=== PATIENT | female | born 1950 | race Caucasian/White ===

== ENCOUNTER 2016-10-14 10:44 | Emergency (ER) | payer OTHER ==
[~2016-10-14] VITALS: Ht 175.3 cm; Wt 66.5 kg
[2016-10-14 10:59] VITALS: BP 146/80; PULSE 88; RESP 16; TEMP 98.5; O2SAT 100
[2016-10-14] MEDS ORDERED: ENAL20TA PO (11:12)
[2016-10-14] MEDS ORDERED: METO50TA11 PO (11:12)
[2016-10-14] MEDS ORDERED: HYDR12.56 PO (11:12)
--- NOTE | 2016-10-14 11:24 | PD ---
HPI Chief Complaint: Cold / Flu Symptoms Time Seen by Provider: 11:21 Travel History International Travel<30 days: No Contact w/Intl Traveler<30days: No Traveled to known affect area: No History of Present Illness HPI 66-year-old long-term smoker presents the emergency department with 2 week history of increasing cough, wheeze, shortness of breath. Cough is productive of yellow green sputum, but denies blood. Patient states started with a head cold with fever for 3 days and hasn't gotten better since. She has decreased appetite but no nausea, vomiting, or diarrhea. Patient has no history of needing nebulizers or inhalers in the past. Patient has muscle aches from coughing. She has not been able to sleep flat for the past week secondary to shortness of breath and cough. Patient has no known drug allergies. PFSH Past Medical History Hypertension: Yes Tetanus Vaccination: > 5 Years Influenza Vaccination: No ?: Not Menopausal: Yes Past Surgical History Surgical History: No Previous Surgery Social History Alcohol Use: No Tobacco Use: Yes (1.5 PPD) Substance Use: No Allergies-Medications (Allergen,Severity, Reaction): Coded Allergies: No Known Allergies (Unverified , 10/14/16) Reported Meds & Prescriptions Reported Meds & Active Scripts Active Reported Enalapril (Enalapril Maleate) 20 Mg Tab 40 Mg PO DAILY Hydrochlorothiazide 12.5 Mg Tab 12.5 Mg PO DAILY Metoprolol Succinate ER 24 HR (Metoprolol Succinate) 50 Mg Tab 50 Mg PO DAILY Review of Systems Except as stated in HPI: all other systems reviewed are Neg General / Constitutional: Positive: Chills, No: Fever Eyes: No: Visual changes HENT: Positive: Rhinitis, Rhinorrhea, Congestion, No: Headaches Cardiovascular: No: Chest Pain or Discomfort Respiratory: Positive: Cough, Shortness of Breath, Wheezing, Orthopnea, No: Sneezing, Hemoptysis, Stridor, Night Sweats, Pleuritic Pain, Other Gastrointestinal: Positive: Loss of Appetite, No: Nausea, Vomiting, Diarrhea, Abdominal Pain Genitourinary: No: Dysuria Musculoskeletal: No: Pain Skin: No Rash Neurologic: No: Weakness Psychiatric: No: Depression Endocrine: No: Polydipsia Hematologic/Lymphatic: No: Easy Bruising Physical Exam Narrative GENERAL: Patient appears ill but not septic. SKIN: Warm. Poor pallor. Mild diaphoresis. HEAD: Atraumatic. Normocephalic. EYES: Pupils equal and round. No scleral icterus. No injection or drainage. ENT: No nasal bleeding or discharge. Mucous membranes pink and moist. TMs are dull bilaterally no injection. Posterior pharynx is unremarkable. Airway is patent. NECK: Trachea midline. No JVD. Supple nontender. CARDIOVASCULAR: Regular rate and rhythm. RESPIRATORY: No accessory muscle use. Diffuse wheezes, rales, and rhonchi throughout to auscultation. Breath sounds equal bilaterally. GASTROINTESTINAL: Abdomen soft, non-tender, nondistended. Hepatic and splenic margins not palpable. MUSCULOSKELETAL: Extremities without clubbing, cyanosis, or edema. No obvious deformities. NEUROLOGICAL: Awake and alert. No obvious cranial nerve deficits. Motor grossly within normal limits. Five out of 5 muscle strength in the arms and legs. Normal speech. PSYCHIATRIC: Appropriate mood and affect; insight and judgment normal. Data Data Last Documented VS Vital Signs Date Time Temp Pulse Resp B/P Pulse Ox O2 Delivery O2 Flow Rate FiO2 10/14/16 13:00 108 20 138/64 93 Nasal Cannula 3 10/14/16 10:59 98.5 Orders Complete Blood Count With Diff (10/14/16 11:24) Comprehensive Metabolic Panel (10/14/16 11:24) Iv Access Insert/Monitor (10/14/16 11:24) Electrocardiogram (10/14/16 11:24) Ecg Monitoring (10/14/16 11:24) Oximetry (10/14/16 11:24) Oxygen Administration (10/14/16 11:24) Chest, Pa & Lat (10/14/16 11:24) Sodium Chloride 0.9% Flush (Ns Flush) (10/14/16 11:30) Methylprednisolone So Succ Inj (Solumedr (10/14/16 11:30) Albuterol-Ipratropium Neb (Duoneb Neb) (10/14/16 11:30) Ceftriaxone Inj (Rocephin Inj) (10/14/16 11:30) Azithromycin (Zithromax) (10/14/16 11:30) Lactic Acid (10/14/16 11:24) Potassium Chloride (Kcl) (10/14/16 12:15) Labs Laboratory Tests Test 5/1/17 11:35 White Blood Count 8.9 TH/MM3 Red Blood Count 4.58 MIL/MM3 Hemoglobin 15.6 GM/DL Hematocrit 46.9 % Mean Corpuscular Volume 102.3 FL Mean Corpuscular Hemoglobin 33.9 PG Mean Corpuscular Hemoglobin 33.2 % Concent Red Cell Distribution Width 11.9 % Platelet Count 235 TH/MM3 Mean Platelet Volume 6.6 FL Neutrophils (%) (Auto) 74.7 % Lymphocytes (%) (Auto) 8.2 % Monocytes (%) (Auto) 16.8 % Eosinophils (%) (Auto) 0.0 % Basophils (%) (Auto) 0.3 % Neutrophils # (Auto) 6.7 TH/MM3 Lymphocytes # (Auto) 0.7 TH/MM3 Monocytes # (Auto) 1.5 TH/MM3 Eosinophils # (Auto) 0.0 TH/MM3 Basophils # (Auto) 0.0 TH/MM3 CBC Comment DIFF FINAL Differential Comment Sodium Level 139 MEQ/L Potassium Level 3.2 MEQ/L Chloride Level 100 MEQ/L Carbon Dioxide Level 29.5 MEQ/L Anion Gap 10 MEQ/L Blood Urea Nitrogen 12 MG/DL Creatinine 0.82 MG/DL Estimat Glomerular Filtration 70 ML/MIN Rate Random Glucose 108 MG/DL Lactic Acid Level 1.1 mmol/L Calcium Level 9.3 MG/DL Total Bilirubin 0.8 MG/DL Aspartate Amino Transf 20 U/L (AST/SGOT) Alanine Aminotransferase 16 U/L (ALT/SGPT) Alkaline Phosphatase 105 U/L Total Protein 7.1 GM/DL Albumin 2.8 GM/DL [facility] Medical Decision Making Medical Screen Exam Complete: Yes Emergency Medical Condition: Yes Differential Diagnosis Chronic bronchitis with exacerbation. COPD. Pneumonia. Wheezy bronchitis. Narrative Course Patient is medically stable at time of exam. EKG is ordered as well as chest x-ray. Labs ordered including CBC, CMP, lactic acid. Chest x-ray PA and lateral was ordered. IV access is obtained patient is given 125 mg Solu-Medrol IV as well as a DuoNeb every 15 minutes 3. Patient is given Rocephin 1 g IV as well as 500 mg azithromycin by mouth. CBC is unremarkable. CMP unremarkable except potassium 3.2. Lactic acid 1.1. Patient is given 20 mEq potassium by mouth 1. Chest x-ray shows possible infiltrate bilaterally versus chronic disease. Per radiologist. Patient will be continued on azithromycin 500 mg daily for the next 5 days. Patient is continued on prednisone dosepak as prescribed. Patient is to use albuterol metered-dose inhaler 2 puffs every 4-6 hours when necessary cough wheeze. Patient is to quit smoking immediately to ensure improvement. Patient is given Tussionex cough medicine 1 teaspoon every 12 hours when necessary cough 60 mL. Patient follow-up with her primary care physician in the next week to ensure improvement or return to emergency Department with worsening symptoms as needed. Diagnosis Primary Impression: COPD with acute exacerbation Additional Impressions: Acute wheezy bronchitis Pneumonia Patient Instructions: COPD (Chronic Obstructive Pulmonary Disease) (ED), General Instructions, How to Stop Smoking (ED), How to Use a Metered-Dose Inhaler (ED), Prednisone (By mouth) Additional Instructions: IV access is obtained patient is given 125 mg Solu-Medrol IV as well as a DuoNeb every 15 minutes 3. Patient is given Rocephin 1 g IV as well as 500 mg azithromycin by mouth. CBC is unremarkable. CMP unremarkable except potassium 3.2. Lactic acid 1.1. Patient is given 20 mEq potassium by mouth 1. Chest x-ray shows possible infiltrate bilaterally versus chronic disease. Per radiologist. Patient will be continued on azithromycin 500 mg daily for the next 5 days. Patient is continued on prednisone dosepak as prescribed. Patient is to use albuterol metered-dose inhaler 2 puffs every 4-6 hours when necessary cough wheeze. Patient is to quit smoking immediately to ensure improvement. Patient is given Tussionex cough medicine 1 teaspoon every 12 hours when necessary cough 60 mL. Patient follow-up with her primary care physician in the next week to ensure improvement or return to emergency Department with worsening symptoms as needed. Med/Other Pt SpecificInfo: Prescription(s) given Disposition: 01 DISCHARGE HOME Condition: Stable Amrik Burrows October 14, 2016 11:24
[2016-10-14 11:30] VITALS: O2SAT 95
[2016-10-14] MEDS ORDERED: SODIUM CHLORIDE 0.9% FLUSH 10 ML FLUSH IVF PRN (11:30)
[2016-10-14] MEDS ORDERED: AZITHROMYCIN 250 MG TAB PO ONE (11:30)
[2016-10-14] MEDS ORDERED: methylPREDNISolone SOD SUCC 125 MG/2 ML VIAL IVP ONE (11:30)
[2016-10-14] MEDS ORDERED: cefTRIAXone INJ 1,000 MG in SODIUM CHLORIDE 0.9% INJ 100 ML IV ONE (11:30)
[2016-10-14] MEDS: RESP: ALBUTEROL 2.5 MG/IPRATROPIUM 0.5 MG NEB (SCH) INH ×2 (11:33→11:35)
[2016-10-14 11:44] LABS: AUTOMATED NEUTROPHIL # 6.7 TH/MM3 (1.8-7.7); BASOPHIL % 0.3 % (0.0-2.0); HEMATOCRIT 46.9 % (35.0-46.0); HEMO FLAGS DIFF FINAL; LYMPH % 8.2 % (9.0-44.0); LYMPHOCYTE # 0.7 TH/MM3 (1.0-4.8); MEAN CELL VOLUME 102.3 FL (80.0-100.0); MEAN CORPUSCULAR HEMOGLOBIN 33.9 PG (27.0-34.0); MEAN CORPUSCULAR HGB CONC 33.2 % (32.0-36.0); MONO % 16.8 % (0.0-8.0); NEUT % 74.7 % (16.0-70.0); PLATELET COUNT 235 TH/MM3 (150-450); RED BLOOD COUNT 4.58 MIL/MM3 (4.00-5.30); RED CELL DISTRIBUTION WIDTH 11.9 % (11.6-17.2); WHITE BLOOD COUNT 8.9 TH/MM3 (4.0-11.0)
[2016-10-14 11:53] VITALS: O2SAT 92
[2016-10-14 11:55] LABS: CHLORIDE 100 MEQ/L (98-107); POTASSIUM 3.2 MEQ/L (3.5-5.1); SODIUM (NA) 139 MEQ/L (136-145)
[2016-10-14 11:59] LABS: ANION GAP 10 MEQ/L (5-15); BICARBONATE 29.5 MEQ/L (21.0-32.0); BLOOD UREA NITROGEN 12 MG/DL (7-18)
[2016-10-14 12:02] LABS: ALT (GPT) 16 U/L (10-53); AST (GOT) 20 U/L (15-37); GLOMERULAR FILTRATION RATE 70 ML/MIN (>89)
[2016-10-14 12:03] LABS: TOTAL BILIRUBIN ADULT 0.8 MG/DL (0.2-1.0)
[2016-10-14 12:05] LABS: ALKALINE PHOSPHATASE 105 U/L (45-117)
[2016-10-14] MEDS ORDERED: POTASSIUM CHLORIDE 20 MEQ CONTROLLED RELEASE TAB PO ONE (12:15)
--- NOTE | 2016-10-14 12:39 | RADHPO ---
EXAM DATE/TIME: 10/14/2016 11:31 [facility] COMPARISON: No previous studies available for comparison. INDICATIONS : Cough, short of breath. MEDICAL HISTORY : smoker SURGICAL HISTORY : None. ENCOUNTER: Initial ACUITY: 2 weeks PAIN SCORE: 0/10 LOCATION: Bilateral chest FINDINGS: PA and lateral views of the chest demonstrate minimal interstitial densities. No consolidation or ple ural effusion. The cardiomediastinal contours are unremarkable. Osseous structures are intact. CONCLUSION: Minimal interstitial densities could be active interstitial infiltrate versus chronic disease. Hunter Nieves MD on October 14, 2016 at 12:36 Board Certified Radiologist. This report was verified electronically.
[2016-10-14 13:00] VITALS: BP 138/64; PULSE 108; RESP 20; O2SAT 93
[2016-10-14] MEDS ORDERED: TUSSSUS2 PO (13:11)
[2016-10-14] MEDS ORDERED: PRED10PA2 PO (13:11)
[2016-10-14] MEDS ORDERED: VENTAER INH (13:11)
[2016-10-14] MEDS ORDERED: AZIT500T2 PO (13:11)
--- NOTE | 2016-10-14 16:32 | EKG ---
Date Performed: 10/14/2016 Time Performed: 11:27:52 PTAGE: 66 years EKG: Sinus rhythm Normal ECG NO PREVIOUS TRACING DOCTOR: Tyler Ross Interpretating Date/Time 10/14/2016 16:30:20
== END 2016-10-14 13:25 | disposition home or self-care (01) ==
LOC: PHEFT 10:44
DX: J44.1 Chronic obstructive pulmonary disease with (acute) exacerbation (principal); J18.9 Pneumonia, unspecified organism; I10 Essential (primary) hypertension; F17.210 Nicotine dependence, cigarettes, uncomplicated
CPT/HCPCS: 71020; 80053; 83605; 85025; 93005; 94640; 94664; 96365; 96375; 99284; J0696; J2930

== ENCOUNTER 2017-05-24 03:59 | Inpatient (IN) | payer OTHER, MEDICARE ==
[~2017-05-24] VITALS: Ht 170.2 cm; Wt 65.7 kg
[2017-05-24] VITALS (8 sets, daily range): BP systolic 135–168; BP diastolic 62–76; PULSE 66–77; RESP 16–20; TEMP 96.8–99.1; O2SAT 94–98
[~2017-05-24 03:59] MED LIST: AZIT500T2 PO; ENAL20TA PO; HYDR12.56 PO; METO1TAB9 PO; PRED10PA2 PO; TUSSSUS2 PO; VENTAER INH
[2017-05-24] MEDS ORDERED: ENAL20TA PO (04:14)
[2017-05-24] MEDS ORDERED: HYDR12.56 PO (04:14)
[2017-05-24] MEDS ORDERED: SODIUM CHLORIDE 0.9% FLUSH 10 ML FLUSH IV FLUSH PRN ×2 (04:30→06:30)
[2017-05-24] MEDS ORDERED: ONDANSETRON HCL 4 MG/2 ML VIAL IVP ONE (04:30)
[2017-05-24 04:38] LABS: AUTOMATED NEUTROPHIL # 8.6 TH/MM3 (1.8-7.7); BASOPHIL # 0.2 TH/MM3 (0-0.2); BASOPHIL % 1.7 % (0.0-2.0); EOSINOPHIL % 0.3 % (0.0-4.0); HEMATOCRIT 45.3 % (35.0-46.0); HEMO FLAGS DIFF FINAL; LYMPH % 5.4 % (9.0-44.0); LYMPHOCYTE # 0.6 TH/MM3 (1.0-4.8); MEAN CELL VOLUME 91.3 FL (80.0-100.0); MEAN CORPUSCULAR HEMOGLOBIN 29.8 PG (27.0-34.0); MEAN CORPUSCULAR HGB CONC 32.7 % (32.0-36.0); MONO % 9.3 % (0.0-8.0); NEUT % 83.3 % (16.0-70.0); PLATELET COUNT 161 TH/MM3 (150-450); RED BLOOD COUNT 4.96 MIL/MM3 (4.00-5.30); RED CELL DISTRIBUTION WIDTH 12.7 % (11.6-17.2); WHITE BLOOD COUNT 10.4 TH/MM3 (4.0-11.0)
[2017-05-24 04:44] LABS: CHLORIDE 103 MEQ/L (98-107); POTASSIUM 3.5 MEQ/L (3.5-5.1); SODIUM (NA) 138 MEQ/L (136-145)
--- NOTE | 2017-05-24 04:44 | PD ---
HPI Chief Complaint: GI Complaint Time Seen by Provider: 04:25 Travel History International Travel<30 days: No Contact w/Intl Traveler<30days: No Traveled to known affect area: No History of Present Illness HPI 66-year-old female presents to the emergency department by private transportation for evaluation of right upper quadrant abdominal pain 2 days. Patient states she has history of gallstones. Patient has had ultrasound the past. Patient states she has frequent episodes of gallbladder attacks with a typically resolve with time and with using a heating pad. Patient states this is been persistent. Patient has had vomiting. Patient denies bilious emesis coffee-ground emesis or bloody emesis. Patient also denies any bloody or tarry stools. Patient has no prior history of abdominal disease no diverticulosis no colitis diverticulitis. Patient's had no colonoscopy or upper endoscopy. Patient denies history of gastritis peptic ulcer disease or pancreatitis. Patient has had no chest pain or shortness of breath. Patient denies fever. Patient is unable to identify exacerbating or alleviating factors. Patient denies alcohol use. Patient does have history of hypertension and diet- controlled hypercholesterolemia. PFSH Past Medical History Narrative Medical COPD dyslipidemia hypertension gallstones High Cholesterol: Yes Gastrointestinal Disorders: Yes (GALLSTONES) Hypertension: Yes Pneumonia: Yes Tetanus Vaccination: > 5 Years Influenza Vaccination: No ?: Not Menopausal: Yes : 1 Para: 1 Tubal Ligation: Yes Past Surgical History Oral Surgery: Yes (TEETH EXTRACTION) Social History Alcohol Use: No Tobacco Use: Yes (1.5 PPD) Substance Use: No Allergies-Medications (Allergen,Severity, Reaction): Coded Allergies: No Known Allergies (Unverified Allergy, Unknown, 05/24/17) Reported Meds & Prescriptions Reported Meds & Active Scripts Active Reported Hydrochlorothiazide 12.5 Mg Tab 12.5 Mg PO DAILY Enalapril (Enalapril Maleate) 20 Mg Tab 20 Mg PO DAILY Metoprolol Succinate ER 24 HR (Metoprolol Succinate) 50 Mg Tab 50 Mg PO DAILY Review of Systems Except as stated in HPI: all other systems reviewed are Neg Physical Exam Narrative GENERAL: Well-developed well-nourished female in no acute distress no respiratory distress SKIN: Warm and dry. HEAD: Normocephalic. EYES: No scleral icterus. No injection or drainage. NECK: Supple, trachea midline. No JVD or lymphadenopathy. CARDIOVASCULAR: Regular rate and rhythm without murmurs, gallops, or rubs. RESPIRATORY: Breath sounds equal bilaterally. No accessory muscle use. GASTROINTESTINAL: Abdomen soft, epigastric and right upper quadrant tenderness to palpation without guarding or rebound nondistended. MUSCULOSKELETAL: No cyanosis, or edema. BACK: Nontender without obvious deformity. No CVA tenderness. Data Data Last Documented VS Vital Signs Date Time Temp Pulse Resp B/P (MAP) Pulse Ox O2 Delivery O2 Flow Rate FiO2 05/24/17 06:05 71 16 154/71 (98) 95 Room Air 05/24/17 04:09 97.6 Orders Orders Complete Blood Count With Diff (05/24/17 04:25) Comprehensive Metabolic Panel (05/24/17 04:25) Lipase (05/24/17 04:25) Urinalysis - C+S If Indicated (05/24/17 04:25) Ct Abd/Pel W Iv Contrast(Rout) (05/24/17 04:25) Iv Access Insert/Monitor (05/24/17 04:25) Ecg Monitoring (05/24/17 04:25) Oximetry (05/24/17 04:25) Ondansetron Inj (Zofran Inj) (05/24/17 04:30) Sodium Chloride 0.9% Flush (Ns Flush) (05/24/17 04:30) Electrocardiogram (05/24/17 04:25) Sodium Chlor 0.9% 1000 Ml Inj (Ns 1000 M (05/24/17 04:45) Hydromorphone Pf Inj (Dilaudid Pf Inj) (05/24/17 05:00) Act Partial Throm Time (Ptt) (05/24/17 05:28) Prothrombin Time / Inr (Pt) (05/24/17 05:28) Iohexol 350 Inj (Omnipaque 350 Inj) (05/24/17 05:35) Ondansetron Inj (Zofran Inj) (05/24/17 06:00) NPO (05/24/17 06:25) Admit Order (Ed Use Only) (05/24/17 ) Vital Signs (Adult) Q4H (05/24/17 06:31) Diet Npo (05/24/17 Breakfast) Activity Oob With Assistance (05/24/17 06:31) Notify Dr: Other (05/24/17 06:31) Admit To Inpatient (05/24/17 ) Vital Signs (Adult) Q4H (05/24/17 06:30) Activity Oob With Assistance (05/24/17 06:30) Bedside Glucose RAÚL.CSUGAR (05/24/17 06:30) Sodium Chlor 0.9% 1000 Ml Inj (Ns 1000 M (05/24/17 06:30) Sodium Chloride 0.9% Flush (Ns Flush) (05/24/17 06:30) Sodium Chloride 0.9% Flush (Ns Flush) (05/24/17 09:00) Acetaminophen (Tylenol) (05/24/17 06:30) Ondansetron Inj (Zofran Inj) (05/24/17 06:30) Comprehensive Metabolic Panel (05/25/17 06:00) Complete Blood Count With Diff (05/25/17 06:00) Case Management Consult (05/24/17 06:30) Scd Bilateral/Knee High RAÚL.BID (05/24/17 06:30) Naloxone Inj (Narcan Inj) (05/24/17 06:30) Docusate Sodium-Senna (Annita-Colace) (05/24/17 09:00) Magnesium Hydroxide Liq (Milk Of Magnesi (05/24/17 06:30) Sennosides (Senokot) (05/24/17 06:30) Bisacodyl Supp (Dulcolax Supp) (05/24/17 06:30) Lactulose Liq (Lactulose Liq) (05/24/17 06:30) Inpatient Certification (05/24/17 ) Hydromorphone Pf Inj (Dilaudid Pf Inj) (05/24/17 06:30) Consult Gastroenterology (05/24/17 ) Labs Laboratory Tests Test 05/24/17 04:30 05/24/17 05:50 White Blood Count 10.4 TH/MM3 Red Blood Count 4.96 MIL/MM3 Hemoglobin 14.8 GM/DL Hematocrit 45.3 % Mean Corpuscular Volume 91.3 FL Mean Corpuscular Hemoglobin 29.8 PG Mean Corpuscular Hemoglobin Concent 32.7 % Red Cell Distribution Width 12.7 % Platelet Count 161 TH/MM3 Mean Platelet Volume 7.6 FL Neutrophils (%) (Auto) 83.3 % Lymphocytes (%) (Auto) 5.4 % Monocytes (%) (Auto) 9.3 % Eosinophils (%) (Auto) 0.3 % Basophils (%) (Auto) 1.7 % Neutrophils # (Auto) 8.6 TH/MM3 Lymphocytes # (Auto) 0.6 TH/MM3 Monocytes # (Auto) 1.0 TH/MM3 Eosinophils # (Auto) 0.0 TH/MM3 Basophils # (Auto) 0.2 TH/MM3 CBC Comment DIFF FINAL Differential Comment Prothrombin Time 10.6 SEC Prothromb Time International Ratio 1.0 RATIO Activated Partial Thromboplast Time 24.5 SEC Blood Urea Nitrogen 14 MG/DL Creatinine 0.83 MG/DL Random Glucose 99 MG/DL Total Protein 6.8 GM/DL Albumin 3.5 GM/DL Calcium Level 9.9 MG/DL Alkaline Phosphatase 352 U/L Aspartate Amino Transf (AST/SGOT) 108 U/L Alanine Aminotransferase (ALT/SGPT) 182 U/L Total Bilirubin 8.0 MG/DL Sodium Level 138 MEQ/L Potassium Level 3.5 MEQ/L Chloride Level 103 MEQ/L Carbon Dioxide Level 26.2 MEQ/L Anion Gap 9 MEQ/L Estimat Glomerular Filtration Rate 69 ML/MIN Lipase 1806 U/L Urine Color ORANGE Urine Turbidity CLEAR Urine pH 6.5 Urine Specific [place] 1.030 Urine Protein NEG mg/dL Urine Glucose (UA) NEG mg/dL Urine Ketones 80 OR GREATER mg/dL Urine Occult Blood SMALL Urine Nitrite NEG Urine Bilirubin LARGE Urine Leukocyte Esterase NEG Urine RBC 3-5 /hpf Urine WBC 0-2 /hpf Urine Squamous Epithelial Cells 0-5 /hpf Urine Bacteria NONE /hpf Microscopic Urinalysis Comment CULT NOT INDICATED MDM Medical Decision Making Medical Screen Exam Complete: Yes Emergency Medical Condition: Yes Medical Record Reviewed: Yes Interpretation(s) EKG: Normal sinus rhythm rate [address] elevation or injury pattern change noted marked artifact is present at baseline CBC & BMP Diagram 05/24/17 04:30 Total Protein 6.8, Albumin 3.5, Calcium Level 9.9, Alkaline Phosphatase 352 H, Aspartate Amino Transf (AST/SGOT) 108 H, Alanine Aminotransferase (ALT/SGPT) 182 H, Total Bilirubin 8.0 H lipase: 1800, elevated Last Impressions Abdomen/Pelvis CT 05/24/17 0425 Signed Impressions: Service Date/Time: Wednesday, May 24, 2017 05:30 - CONCLUSION: 1. Marked dilatation of the intrahepatic and extrahepatic biliary tree, common bile like measuring up to 2.1 cm in maximal dimension. The exact etiology of the biliary dilatation is indeterminate on the basis of this exam. There is a questionable nonobstructing in the dependent portion. 2. Indeterminate left adrenal mass identified. 3. Atherosclerosis. 4. The gallbladder is abnormal. There is wall thickening and cholelithiasis suspected. The possibility of cholecystitis should be entertained. Olivier Solis MD Differential Diagnosis Cholecystitis, choledocholithiasis, ascending cholangitis, gastritis peptic ulcer disease, pancreatitis, ACS Narrative Course IV access obtained specimens collected and sent for resulting EKG performed sinus rhythm no acute injury pattern change; patient administered Zofran 4 mg IV Dilaudid 0.5 mg IV at maintenance IV fluids Pain improved after Dilaudid however persistent nausea therefore additional dose of Zofran 4 mg IV administered CBC is automated differential total white cell count is within normal range mild left shift 83% neutrophils; chemistries remarkable for marked elevation of total bilirubin 8.0 with elevated LFTs and alkaline phosphatase as well as elevated lipase concerning for pancreatitis secondary to biliary obstruction concerning for mass versus stone with cholecystitis CT abdomen and pelvis pending CT abdomen and pelvis consistent with markedly dilated extrahepatic and intrahepatic ducts as well as gallbladder wall thickening without any pericholecystic fluid the common duct is dilated 2.1 cm with a mass noted is not identified specifically has a stone and the pain clinic duct and pancreas appear to be without dilatation or inflammatory change. Patient's case discussed with on-call center human resources manager Dr. Lu are recommend patient be transferred to [facility] as able do an ERCP this morning Patient's case discussed with on-call medicine service for admission patient is being kept nothing by mouth next line patient is aware of admission plans and is agreeable to this plan Physician Communication Physician Communication call placed to [facility] service and GI service ---transfer to [facility] Diagnosis Primary Impression: Biliary obstruction Additional Impression: Gallstone pancreatitis Admitting Information Admitting Physician Requests: Admit Yeimi Gaytan MD May 24, 2017 04:43
[2017-05-24] MEDS ORDERED: SODIUM CHLOR 0.9% 1000 ML INJ 1,000 ML IV ONE (04:45)
[2017-05-24 04:47] LABS: ANION GAP 9 MEQ/L (5-15); BICARBONATE 26.2 MEQ/L (21.0-32.0)
[2017-05-24 04:48] LABS: BLOOD UREA NITROGEN 14 MG/DL (7-18)
[2017-05-24 04:50] LABS: ALT (GPT) 182 U/L (10-53); AST (GOT) 108 U/L (15-37)
[2017-05-24 04:51] LABS: GLOMERULAR FILTRATION RATE 69 ML/MIN (>89)
[2017-05-24 04:53] LABS: ALKALINE PHOSPHATASE 352 U/L (45-117)
[2017-05-24] MEDS ORDERED: HYDROmorphone HCL PF 1 MG/ML VIAL IV PUSH ONE (05:00)
[2017-05-24] MEDS ORDERED: IOHEXOL 350 MG/ML 10 ML VIAL (for RAD DIAG) IVCONTRAST ONE (05:35)
[2017-05-24 05:41] LABS: APTT (PATIENT) 24.5 SEC (24.3-30.1); PROTHROMBIN TIME - PATIENT 10.6 SEC (9.8-11.6)
[2017-05-24 05:57] LABS: BLOOD, URINE SMALL (NEG); GLUCOSE,URINE NEG (NEG); KETONE, URINE 80 OR GREATER mg/dL (NEG); NITRITE,URINE NEG (NEG); PH, URINE 6.5 (5.0-8.5)
[2017-05-24 06:00] LABS: URINE COLOR ORANGE (YELLW/STRAW)
[2017-05-24] MEDS ORDERED: ONDANSETRON HCL 4 MG/2 ML VIAL IV PUSH ONE (06:00)
[2017-05-24 06:01] LABS: WBC, URINE 0-2 /hpf (0-5)
[2017-05-24 06:02] LABS: COMMENT (UR) CULT NOT INDICATED; CULTURE IF INDICATED CULT NOT INDICATED; SQUAMOUS EPITHELIAL CELL URINE 0-5 /hpf (0-5)
--- NOTE | 2017-05-24 06:09 | RADRPT ---
EXAM DATE/TIME: 05/24/2017 05:30 [facility] COMPARISON: No previous studies available for comparison. INDICATIONS : Right upper quad pain with nausea and vomiting. [place] urine. IV CONTRAST: 93 cc Omnipaque 350 (iohexol) IV ORAL CONTRAST: No oral contrast ingested. RADIATION DOSE: 7.50 CTDIvol (mGy) MEDICAL HISTORY : Cholelithiasis. Hypertension. SURGICAL HISTORY : Tubal ligation. ENCOUNTER: Initial ACUITY: 2 days PAIN SCALE: 5/10 LOCATION: Right upper quadrant TECHNIQUE: Volumetric scanning of the abdomen and pelvis was performed. Using automated exposure control and ad justment of the mA and/or kV according to patient size, radiation dose was kept as low as reasonably achievable to obtain optimal diagnostic quality images. DICOM format image data is available electro nically for review and comparison. FINDINGS: No pleural or pericardial effusions are seen. Spleen, kidneys, right adrenal gland unremarkable. Ther e is a mass of the left adrenal gland measuring 2.4 x 1.8 cm in AP transverse dimension. There is mar ked dilatation of the intrahepatic biliary tree, and common bile duct, the common bile duct measuring up to 21 mm in maximal dimension and tapering as it approaches the ampulla. On axial image 29 there is a questionable soft tissue density in the dependent portion of the common bile duct measured 6.4 m m. The pancreatic duct in pancreatic parenchyma is normal in caliber. The gallbladder is abnormal in appearance. There is gallbladder wall thickening suspected. No pericholecystic fluid. Slight increase d density within the gallbladder may be related to sludge or noncalcified stones. There is no adenopa thy. Atherosclerotic calcification of the aorta and iliac vessels are seen. Urinary bladder is unrema rkable. There are calcified uterine fibroids. There is no evidence of bowel obstruction. Lung bases a re clear. Osseous structures demonstrate degenerative changes of the spine. CONCLUSION: 1. Marked dilatation of the intrahepatic and extrahepatic biliary tree, common bile like measuring up to 2.1 cm in maximal dimension. The exact etiology of the biliary dilatation is indeterminate on th e basis of this exam. There is a questionable nonobstructing in the dependent portion. 2. Indeterminate left adrenal mass identified. 3. Atherosclerosis. 4. The gallbladder is abnormal. There is wall thickening and cholelithiasis suspected. The possibilit y of cholecystitis should be entertained. Olivier Slois MD on May 24, 2017 at 5:58 Board Certified Radiologist. This report was verified electronically.
[2017-05-24] MEDS ORDERED: MAGNESIUM HYDROXIDE SUSP 30 ML CUP PO PRN (06:30)
[2017-05-24] MEDS ORDERED: ACETAMINOPHEN 325 MG TAB PO PRN (06:30)
[2017-05-24] MEDS ORDERED: SENNOSIDES 8.6 MG TAB PO PRN (06:30)
[2017-05-24] MEDS ORDERED: BISACODYL 10 MG SUPP RECTAL PRN (06:30)
[2017-05-24] MEDS ORDERED: HYDROmorphone HCL PF 1 MG/ML VIAL IV PUSH PRN (06:30)
[2017-05-24] MEDS: SODIUM CHLOR 0.9% 1000 ML INJ 1,000 ML IV SCH ×6 (06:30→20:58)
[2017-05-24] MEDS ORDERED: NALOXONE HCL 0.4 MG/ML AMP IV PUSH PRN (06:30)
[2017-05-24] MEDS ORDERED: LACTULOSE SYRUP 20 GM/30 ML CUP PO PRN (06:30)
[2017-05-24] MEDS ORDERED: METOCLOPRAMIDE HCL 10 MG/2 ML VIAL IV PUSH ONE (06:45)
[2017-05-24] MEDS: SODIUM CHLORIDE 0.9% FLUSH 10 ML FLUSH IV FLUSH SCH ×2 (09:00→20:58)
[2017-05-24] MEDS ORDERED: DOCUSATE SODIUM 50 MG/SENNA 8.6 MG TAB PO SCH (09:00)
[2017-05-24] MEDS: ONDANSETRON HCL 4 MG/2 ML VIAL IVP PRN ×2 (10:00→17:51)
[2017-05-24] MEDS ORDERED: DEXAMETHASONE SOD PHOS 4 MG/ML VIAL IV ONE (12:00)
[2017-05-24] MEDS ORDERED: PROPOFOL 200 MG/20 ML AMP IV ONE (12:00)
[2017-05-24] MEDS ORDERED: LIDOCAINE HCL 1% PF 5 ML SYRINGE OTHER ONE (12:00)
[2017-05-24] MEDS ORDERED: SUCCINYLCHOLINE CHLORIDE 100 MG/5 ML SYRINGE IV PUSH ONE (12:00)
[2017-05-24] MEDS ORDERED: ONDANSETRON HCL 4 MG/2 ML VIAL IV ONE (12:00)
[2017-05-24] MEDS ORDERED: ENALAPRILAT 2.5 MG/2 ML VIAL IV PUSH PRN (12:15)
--- NOTE | 2017-05-24 12:20 | HHI.HP ---
[facility] Service [facility] Primary Care Physician Inez Wyatt Do, MD Admission Diagnosis biliary obstruction;gallstone pancreatitis/chloecystitis Diagnoses: (1) Gallstone pancreatitis (2) Biliary obstruction Chief Complaint: Abdominal pain Travel History International Travel<30 Days: No Contact w/Intl Traveler <30 Da: No Traveled to Known Affected Are: No History of Present Illness Milligan 6-year-old female with a history of hypertension, COPD, presented to the ED for evaluation of 48 hour history of mid epigastric and right upper quadrant pain radiates 7/10 in intensity associated with nausea and emesis. Pain is described as colicky with radiation to her back and worse with food. She has no associated GI bleed, hemoptysis. CT abdomen in ED reveal marked dilatation of intrahepatic and extrahepatic biliary tree with a lipase of 1806. Patient also denies any chest pain. She is currently nothing by mouth. Review of Systems Except as stated in HPI: all other systems reviewed are Neg Past Family Social History Past Medical History COPD Hyperlipidemia Gastrointestinal Disorders: Yes (GALLSTONES) Hypertension Past Surgical History Tubal ligation Reported Medications Hydrochlorothiazide 12.5 Mg Tab 12.5 Mg PO DAILY Enalapril (Enalapril Maleate) 20 Mg Tab 20 Mg PO DAILY Metoprolol Succinate ER 24 HR (Metoprolol Succinate) 50 Mg Tab 50 Mg PO DAILY Allergies: Coded Allergies: No Known Allergies (Unverified Allergy, Unknown, 05/24/17) Family History Father had heart attack at age 48, had history hyperlipidemia Social History Alcohol Use: No Tobacco Use: Yes (1.5 PPD) Substance Use: No Physical Exam Vital Signs Vital Signs Date Time Temp Pulse Resp B/P (MAP) Pulse Ox O2 Delivery O2 Flow Rate FiO2 05/24/17 08:50 05/24/17 08:11 66 18 149/63 (91) 98 Room Air 05/24/17 07:21 98 Room Air 05/24/17 06:05 71 16 154/71 (98) 95 Room Air 05/24/17 05:21 68 16 154/62 (92) 94 Room Air 05/24/17 04:09 97.6 77 18 168/76 (113) 75 Physical Exam GENERAL: This is a well-nourished, well-developed patient, in no apparent distress. SKIN: No rashes, ecchymoses or lesions. Cool and dry. HEAD: Atraumatic. Normocephalic. No temporal or scalp tenderness. EYES: Pupils equal round and reactive. Extraocular motions intact. No scleral icterus. No injection or drainage. ENT: Nose without bleeding, purulent drainage or septal hematoma. Throat without erythema, tonsillar hypertrophy or exudate. Uvula midline. Airway patent. NECK: Trachea midline. No JVD or lymphadenopathy. Supple, nontender, no meningeal signs. CARDIOVASCULAR: Regular rate and rhythm without murmurs, gallops, or rubs. RESPIRATORY: Clear to auscultation. Breath sounds equal bilaterally. No wheezes , rales, or rhonchi. GASTROINTESTINAL: Abdomen soft, non-tender, nondistended. No hepato-splenomegaly , or palpable masses. No guarding. MUSCULOSKELETAL: Extremities without clubbing, cyanosis, or edema. No joint tenderness, effusion, or edema noted. No calf tenderness. Negative Homans sign bilaterally. NEUROLOGICAL: Awake and alert. Cranial nerves II through XII intact. Motor and sensory grossly within normal limits. Five out of 5 muscle strength in all muscle groups. Normal speech. Laboratory Laboratory Tests Test 05/24/17 04:30 05/24/17 05:50 White Blood Count 10.4 Red Blood Count 4.96 Hemoglobin 14.8 Hematocrit 45.3 Mean Corpuscular Volume 91.3 Mean Corpuscular Hemoglobin 29.8 Mean Corpuscular Hemoglobin Concent 32.7 Red Cell Distribution Width 12.7 Platelet Count 161 Mean Platelet Volume 7.6 Neutrophils (%) (Auto) 83.3 Lymphocytes (%) (Auto) 5.4 Monocytes (%) (Auto) 9.3 Eosinophils (%) (Auto) 0.3 Basophils (%) (Auto) 1.7 Neutrophils # (Auto) 8.6 Lymphocytes # (Auto) 0.6 Monocytes # (Auto) 1.0 Eosinophils # (Auto) 0.0 Basophils # (Auto) 0.2 CBC Comment DIFF FINAL Differential Comment Prothrombin Time 10.6 Prothromb Time International Ratio 1.0 Activated Partial Thromboplast Time 24.5 Blood Urea Nitrogen 14 Creatinine 0.83 Random Glucose 99 Total Protein 6.8 Albumin 3.5 Calcium Level 9.9 Alkaline Phosphatase 352 Aspartate Amino Transf (AST/SGOT) 108 Alanine Aminotransferase (ALT/SGPT) 182 Total Bilirubin 8.0 Sodium Level 138 Potassium Level 3.5 Chloride Level 103 Carbon Dioxide Level 26.2 Anion Gap 9 Estimat Glomerular Filtration Rate 69 Lipase 1806 Urine Color ORANGE Urine Turbidity CLEAR Urine pH 6.5 Urine Specific [place] 1.030 Urine Protein NEG Urine Glucose (UA) NEG Urine Ketones 80 OR GREATER Urine Occult Blood SMALL Urine Nitrite NEG Urine Bilirubin LARGE Urine Leukocyte Esterase NEG Urine RBC 3-5 Urine WBC 0-2 Urine Squamous Epithelial Cells 0-5 Urine Bacteria NONE Microscopic Urinalysis Comment CULT NOT INDICATED Result Diagram: 05/24/1742905/24/17429 Imaging Last Impressions Abdomen/Pelvis CT 05/24/17424 Signed Impressions: Service Date/Time: Friday, May 24, 2017 05:30 - CONCLUSION: 1. Marked dilatation of the intrahepatic and extrahepatic biliary tree, common bile like measuring up to 2.1 cm in maximal dimension. The exact etiology of the biliary dilatation is indeterminate on the basis of this exam. There is a questionable nonobstructing in the dependent portion. 2. Indeterminate left adrenal mass identified. 3. Atherosclerosis. 4. The gallbladder is abnormal. There is wall thickening and cholelithiasis suspected. The possibility of cholecystitis should be entertained. MD Ashlyn Castilloi VTE Risk Assessment Caprini VTE Risk Assessment: Mod/High Risk (score >= 2) Caprini Risk Assessment Model Point Value = 1 Point Value = 2 Point Value = 3 Point Value = 5 Age 41-60 Minor surgery BMI > 25 kg/m2 Swollen legs Varicose veins or History of unexplained or recurrent spontaneous Oral contraceptives or hormone replacement Sepsis (< 1 month) Serious lung disease, including pneumonia (< 1 month) Abnormal pulmonary function Acute myocardial infarction Congestive heart failure (< 1 month) History of inflammatory bowel disease Medical patient at bed rest Age 61-74 Arthroscopic surgery Major open surgery (> 45 min) Laparoscopic surgery (> 45 min) Malignancy Confined to bed (> 72 hours) Immobilizing plaster cast Central venous access Age >= 75 History of VTE Family history of VTE Factor V Leiden Prothrombin [id number] Lupus anticoagulant Anticardiolipin antibodies Elevated serum homocysteine Heparin-induced thrombocytopenia Other congenital or acquired thrombophilia Stroke (< 1 month) Elective arthroplasty Hip, pelvis, or leg fracture Acute spinal cord injury (< 1 month) Prophylaxis Regimen Total Risk Factor Score Risk Level Prophylaxis Regimen 0-1 Low Early ambulation 2 Moderate Order ONE of the following: *Sequential Compression Device (SCD) *Heparin 5000 units SQ BID 3-4 Higher Order ONE of the following medications: *Heparin 5000 units SQ TID *Enoxaparin/Lovenox 40 mg SQ daily (WT < 150 kg, CrCl > 30 mL/min) *Enoxaparin/Lovenox 30 mg SQ daily (WT < 150 kg, CrCl > 10-29 mL/min) *Enoxaparin/Lovenox 30 mg SQ BID (WT < 150 kg, CrCl > 30 mL/min) AND/OR *Sequential Compression Device (SCD) 5 or more Highest Order ONE of the following medications: *Heparin 5000 units SQ TID (Preferred with Epidurals) *Enoxaparin/Lovenox 40 mg SQ daily (WT < 150 kg, CrCl > 30 mL/min) *Enoxaparin/Lovenox 30 mg SQ daily (WT < 150 kg, CrCl > 10-29 mL/min) *Enoxaparin/Lovenox 30 mg SQ BID (WT < 150 kg, CrCl > 30 mL/min) AND *Sequential Compression Device (SCD) Assessment and Plan Problem List: (1) Gallstone pancreatitis ICD Code: K85.10 - Biliary acute pancreatitis without necrosis or infection Status: Acute (2) Biliary obstruction ICD Code: K83.1 - Obstruction of bile duct Status: Acute Assessment and Plan 66-year-old female with Gallstone pancreatitis Biliary obstruction CT abdomen/pelvis noted and reviewed by me with finding of marked dilatation of the intrahepatic and extrahepatic biliary tree Gastroenterology consultation pending for evaluation for ERCP Pain management accordingly with IV parenteral Dilaudid, keep nothing by mouth, IV fluid hydration Monitor lipase level Hypertension Currently normotensive, resume outpatient medications Tobacco abuse Tobacco counselling cessation provided, patient declined nicotine patch History of COPD No current exacerbation She was advised on tobacco cessation DuoNeb when necessary DVT prophylaxis: Bilateral SCDs Code Status Full code Discussed Condition With Patient Physician Certification 2 Midnight Certification Type: Admission for Inpatient Services Order for Inpatient Services The services are ordered in accordance with Medicare regulations or non- Medicare payer requirements, as applicable. In the case of services not specified as inpatient-only, they are appropriately provided as inpatient services in accordance with the 2-midnight benchmark. Estimated LOS (days): 2 days is the estimated time the patient will need to remain in the hospital, assuming treatment plan goals are met and no additional complications. Post-Hospital Plan: Not yet determined Hunter Sequeira MD May 24, 2017 12:20
--- NOTE | 2017-05-24 12:45 | EKG ---
Date Performed: 05/24/2017 Time Performed: 04:37:12 PTAGE: 66 years EKG: Sinus rhythm BORDERLINE LEFT AXIS DEVIATION NONSPECIFIC T-WAVE ABNORMALITY BORDERLINE ECG PREVIOUS TRACING : 10/14/2016 11.27 Baseline artifact makes interpretation difficult. Since pre vious tracing, no significant change. DOCTOR: Stevan Kaur Interpretating Date/Time 05/24/2017 12:44:26
[2017-05-24] MEDS ORDERED: DO NOT ADM ANY ANTICOAGULANT DRUGS PRN (16:14)
--- NOTE | 2017-05-24 16:17 | RADRPT ---
EXAM DATE/TIME: 05/24/2017 15:29 [place] COMPARISON: CT ABDOMEN & PELVIS W CONTRAST, May 24, 2017, 5:30. INDICATIONS : Obstruction via stones, sphincterotomy. FLUORO TIME: 3.25 minutes IMAGE COUNT: 2 CONTRAST: Instilled by Ordering Physician MEDICAL HISTORY : None. SURGICAL HISTORY : None. ENCOUNTER: Initial ACUITY: 1 day PAIN SCORE: Non-responsive. LOCATION: Abdomen. FINDINGS: An ERCP was performed by the ordering physician. The images demonstrate contrast in the pancreatic duct which appears to be unremarkable. There is als o contrast in what appears to be a dilated common bile duct with filling defects. For a more detailed report, see the report by the driver utility worker. CONCLUSION: ERCP as above. Will Pyle MD on May 24, 2017 at 16:13 Board Certified Radiologist. This report was verified electronically.
--- NOTE | 2017-05-24 17:24 | PD.PROCEDR ---
GI Procedure PROCEDURE PERFORMED ERCP, sphincterotomy, stone removal, biopsy from the ampulla INDICATION FOR PROCEDURE Elevated liver function test, abnormal MRCP PROCEDURE: The procedure, risks and benefits were discussed with Ms. Alas and informed consent was obtained. Anesthesia sedated her with Diprivan. She was placed in the prone position. ERCP: Patient was placed in a prone position. The Pentax videoscope was introduced through the oropharynx and advanced to the second portion of the duodenum where the ampula was identified. The ampulla was very prominent, cannulation was performed, cholangiogram showed very dilated common bile duct with multiple filling defect, sphincterotomy was performed, significant amount of pus came out the duct was flushed with normal saline was significant amount of pus and debris came out with small stones then a balloon sweep of the duct revealed at least 10 stones large in size most likely the duct was totally impacted with stone and debris multiple sweeping of the ducts was performed with end of the case colluded cholangiogram was unremarkable, pancreatic duct looked normal with initial injection, because of the ampulla was prominent biopsy was done to rule out abnormality, at the end the scope withdrawal back retroflexion was performed and the scope withdrawal back without immediate complication from the mouth FINDINGS: EGD limited exam Stomach normal Prominent ampulla biopsy was done Pancreatic duct normal Common bile duct severe enlargement and dilation with multiple filling defects sphincterotomy was done and sweeping the duct revealed lots of pus and more than 10 stone with sludge Otherwise normal ESTIMATED BLOOD LOSS: None SPECIMENS REMOVED: Ampulla COMPLICATIONS: None IMPRESSION: Prominent ampulla biopsy was done More than 10 stones in the common bile duct with pus and sludge PLAN: Nothing by mouth until the morning Follow-up biopsy Liver function test and lipase in the morning Patient would need consideration for gallbladder resection Nicky Garcia MD May 24, 2017 17:24
[2017-05-25] VITALS: BP 136/63; PULSE 61; RESP 17; TEMP 96.7; O2SAT 93
[2017-05-25] MEDS: SODIUM CHLOR 0.9% 1000 ML INJ 1,000 ML IV SCH ×2 (01:31→05:00)
[2017-05-25 04:00] VITALS: BP 134/62; PULSE 64; RESP 18; TEMP 96.6; O2SAT 95
[2017-05-25 07:01] LABS: AUTOMATED NEUTROPHIL # 5.8 TH/MM3 (1.8-7.7); BASOPHIL % 0.2 % (0.0-2.0); EOSINOPHIL % 0.1 % (0.0-4.0); HEMATOCRIT 40.3 % (35.0-46.0); HEMO FLAGS DIFF FINAL; LYMPH % 6.8 % (9.0-44.0); LYMPHOCYTE # 0.5 TH/MM3 (1.0-4.8); MEAN CELL VOLUME 94.5 FL (80.0-100.0); MEAN CORPUSCULAR HEMOGLOBIN 31.4 PG (27.0-34.0); MEAN CORPUSCULAR HGB CONC 33.2 % (32.0-36.0); MONO % 10.9 % (0.0-8.0); PLATELET COUNT 127 TH/MM3 (150-450); RED BLOOD COUNT 4.26 MIL/MM3 (4.00-5.30); RED CELL DISTRIBUTION WIDTH 13.3 % (11.6-17.2)
[2017-05-25 07:25] LABS: ALT (GPT) 104 U/L (10-53); ANION GAP 8 MEQ/L (5-15); AST (GOT) 48 U/L (15-37); BICARBONATE 25.8 MEQ/L (21.0-32.0); BLOOD UREA NITROGEN 13 MG/DL (7-18); CHLORIDE 110 MEQ/L (98-107); GLOMERULAR FILTRATION RATE 85 ML/MIN (>89); POTASSIUM 3.6 MEQ/L (3.5-5.1); SODIUM (NA) 144 MEQ/L (136-145)
[2017-05-25 07:27] LABS: ALKALINE PHOSPHATASE 275 U/L (45-117); TOTAL BILIRUBIN ADULT 5.6 MG/DL (0.2-1.0)
[2017-05-25 08:00] VITALS: BP 132/65; PULSE 66; RESP 17; TEMP 96.4; O2SAT 96
[2017-05-25] MEDS ORDERED: METOPROLOL SUCCINATE 50 MG EXTENDED RELEASE TAB PO SCH (09:00)
[2017-05-25] MEDS ORDERED: ENALAPRIL MALEATE 10 MG TAB PO SCH (09:00)
[2017-05-25] MEDS ORDERED: HYDROCHLOROTHIAZIDE 12.5 MG CAP PO SCH (09:00)
[2017-05-25] MEDS ORDERED: INFLUENZA VIRUS VACCINE (QUADRIVALENT) 0.5 ML SYR IM ONE (10:00)
--- NOTE | 2017-05-25 10:14 | HHI.PR ---
Subjective Remarks Follow-up gallstone pancreatitis 05/25/17-patient seen and examined, status post ERCP with sphincterectomy and denies any pain today currently nothing by mouth. Objective Vitals Vital Signs Date Time Temp Pulse Resp B/P (MAP) Pulse Ox O2 Delivery O2 Flow Rate FiO2 05/25/17 08:00 96.4 66 17 132/65 (87) 96 05/25/17 04:00 96.6 64 18 134/62 (86) 95 05/25/17 00:00 96.7 61 17 136/63 (87) 93 05/25/17 00:00 93 05/24/17 20:00 99.1 68 17 135/62 (86) 94 05/24/17 17:48 97.5 68 20 154/67 (96) 94 05/24/17 16:30 80 16 149/61 (90) 97 Nasal Cannula 2 05/24/17 16:15 72 16 167/62 (97) 97 Nasal Cannula 2 05/24/17 16:08 98.6 79 16 160/61 (94) 97 Nasal Cannula 2 05/24/17 12:00 96.8 75 16 141/65 (90) 95 I/O 05/24/17 05/24/17 05/24/17 05/25/17 05/25/17 05/25/17 07:00 15:00 23:00 07:00 15:00 23:00 Intake Total 1000 ml 500 ml 240 ml Output Total 100 ml Balance 900 ml 500 ml 240 ml Intake Oral 240 ml IV Total 1000 ml Other 500 ml Output Urine Total 100 ml # Voids 1 2 Result Diagram: 05/25/17 0615 05/25/17 0615 Imaging Last Impressions Abdomen/Pelvis CT 05/24/17 0425 Signed Impressions: Service Date/Time: Wednesday, May 24, 2017 05:30 - CONCLUSION: 1. Marked dilatation of the intrahepatic and extrahepatic biliary tree, common bile like measuring up to 2.1 cm in maximal dimension. The exact etiology of the biliary dilatation is indeterminate on the basis of this exam. There is a questionable nonobstructing in the dependent portion. 2. Indeterminate left adrenal mass identified. 3. Atherosclerosis. 4. The gallbladder is abnormal. There is wall thickening and cholelithiasis suspected. The possibility of cholecystitis should be entertained. Olivier Solis MD GI Procedure 05/24/17 0000 Signed Impressions: Service Date/Time: Wednesday, May 24, 2017 15:29 - CONCLUSION: ERCP as above. Will Pyle MD Objective Remarks GENERAL: NAD SKIN: Warm and dry. HEAD: Normocephalic. EYES: No scleral icterus. No injection or drainage. NECK: Supple, trachea midline. No JVD or lymphadenopathy. CARDIOVASCULAR: Regular rate and rhythm without murmurs, gallops, or rubs. RESPIRATORY: Breath sounds equal bilaterally. No accessory muscle use. GASTROINTESTINAL: Abdomen soft, non-tender, nondistended. MUSCULOSKELETAL: No cyanosis, or edema. BACK: Nontender without obvious deformity. No CVA tenderness. A/P Problem List: (1) Gallstone pancreatitis ICD Code: K85.10 - Biliary acute pancreatitis without necrosis or infection Status: Acute (2) Biliary obstruction ICD Code: K83.1 - Obstruction of bile duct Status: Acute Assessment and Plan 66-year-old female with Gallstone pancreatitis Biliary obstruction-resolved CT abdomen/pelvis with finding of marked dilatation of the intrahepatic and extrahepatic biliary tree Appreciate input from Gastroenterology Status post ERCP with sphincterectomy and sweeping the duct revealed lots of pus and more than 10 stone with sludge 05/24/17. Per GI May consider Gen Surgery consultation for evaluation for possible lap cholecystectomy Pain management accordingly with IV parenteral Dilaudid, keep nothing by mouth, IV fluid hydration Lipase down to 248, LFTs trending down Currently nothing by mouth Hypertension Currently normotensive, continue outpatient medications Tobacco abuse Tobacco counselling cessation provided, patient declined nicotine patch History of COPD No current exacerbation She was advised on tobacco cessation DuoNeb when necessary DVT prophylaxis: Bilateral SCDs Discharge Planning Discharge patient to home Condition on discharge: Improved Regular Diet as tolerated Ad Harriet activity Rx written:none Follow-up with primary care physician in 1 week general surgery in 2 days Hunter Sequeira MD May 25, 2017 10:14
--- NOTE | 2017-05-25 13:16 | HHI.GIFU ---
Subjective Remarks Resting in bed in no apparent distress. Denies abdominal pain. Denies nausea or vomiting. Would like to go home today. (Perlita Thomas) Objective Vitals I&O Vital Signs Date Time Temp Pulse Resp B/P (MAP) Pulse Ox O2 Delivery O2 Flow Rate FiO2 05/25/17 08:00 96.4 66 17 132/65 (87) 96 05/25/17 04:00 96.6 64 18 134/62 (86) 95 05/25/17 00:00 96.7 61 17 136/63 (87) 93 05/25/17 00:00 93 05/24/17 20:00 99.1 68 17 135/62 (86) 94 05/24/17 17:48 97.5 68 20 154/67 (96) 94 05/24/17 16:30 80 16 149/61 (90) 97 Nasal Cannula 2 05/24/17 16:15 72 16 167/62 (97) 97 Nasal Cannula 2 05/24/17 16:08 98.6 79 16 160/61 (94) 97 Nasal Cannula 2 I/O 05/24/17 05/24/17 05/24/17 05/25/17 05/25/17 05/25/17 07:00 15:00 23:00 07:00 15:00 23:00 Intake Total 1000 ml 500 ml 240 ml Output Total 100 ml Balance 900 ml 500 ml 240 ml Intake Oral 240 ml IV Total 1000 ml Other 500 ml Output Urine Total 100 ml # Voids 1 2 Laboratory Last Impressions Abdomen/Pelvis CT 05/24/17 0425 Signed Impressions: Service Date/Time: Wednesday, May 24, 2017 05:30 - CONCLUSION: 1. Marked dilatation of the intrahepatic and extrahepatic biliary tree, common bile like measuring up to 2.1 cm in maximal dimension. The exact etiology of the biliary dilatation is indeterminate on the basis of this exam. There is a questionable nonobstructing in the dependent portion. 2. Indeterminate left adrenal mass identified. 3. Atherosclerosis. 4. The gallbladder is abnormal. There is wall thickening and cholelithiasis suspected. The possibility of cholecystitis should be entertained. Olivier Solis MD GI Procedure 05/24/17 0000 Signed Impressions: Service Date/Time: Wednesday, May 24, 2017 15:29 - CONCLUSION: ERCP as above. Will J. Siragusa, MD Laboratory Tests Test 05/25/17 06:15 White Blood Count 7.0 Red Blood Count 4.26 Hemoglobin 13.4 Hematocrit 40.3 Mean Corpuscular Volume 94.5 Mean Corpuscular Hemoglobin 31.4 Mean Corpuscular Hemoglobin Concent 33.2 Red Cell Distribution Width 13.3 Platelet Count 127 Mean Platelet Volume 8.3 Neutrophils (%) (Auto) 82.0 Lymphocytes (%) (Auto) 6.8 Monocytes (%) (Auto) 10.9 Eosinophils (%) (Auto) 0.1 Basophils (%) (Auto) 0.2 Neutrophils # (Auto) 5.8 Lymphocytes # (Auto) 0.5 Monocytes # (Auto) 0.8 Eosinophils # (Auto) 0.0 Basophils # (Auto) 0.0 CBC Comment DIFF FINAL Differential Comment Blood Urea Nitrogen 13 Creatinine 0.69 Random Glucose 67 Total Protein 5.5 Albumin 2.7 Calcium Level 9.5 Alkaline Phosphatase 275 Aspartate Amino Transf (AST/SGOT) 48 Alanine Aminotransferase (ALT/SGPT) 104 Total Bilirubin 5.6 Sodium Level 144 Potassium Level 3.6 Chloride Level 110 Carbon Dioxide Level 25.8 Anion Gap 8 Estimat Glomerular Filtration Rate 85 Lipase 248 Imaging Last Impressions Abdomen/Pelvis CT 05/24/17 0425 Signed Impressions: Service Date/Time: Wednesday, May 24, 2017 05:30 - CONCLUSION: 1. Marked dilatation of the intrahepatic and extrahepatic biliary tree, common bile like measuring up to 2.1 cm in maximal dimension. The exact etiology of the biliary dilatation is indeterminate on the basis of this exam. There is a questionable nonobstructing in the dependent portion. 2. Indeterminate left adrenal mass identified. 3. Atherosclerosis. 4. The gallbladder is abnormal. There is wall thickening and cholelithiasis suspected. The possibility of cholecystitis should be entertained. Olivier Solis MD GI Procedure 05/24/17 0000 Signed Impressions: Service Date/Time: Wednesday, May 24, 2017 15:29 - CONCLUSION: ERCP as above. Will Pyle MD Physical Exam HEENT: Normocephalic; atraumatic; no jaundice. NECK: Neck is supple CHEST: CTA CARDIAC: RRR with no murmur gallop or rubs. ABDOMEN: Soft, nondistended, nontender; no hepatosplenomegaly; bowel sounds are present in all four quadrants. EXTREMITIES: No clubbing, cyanosis, or edema. SKIN: Normal; no rash; no jaundice. SPOILAGE WORKER: No focal deficits; alert and oriented times three. (Perlita Thomas) Assessment and Plan Plan ASSESSMENT: - Gallstone pancreatitis with biliary obstruction, resolved. Abdomen/Pelvis CT 05/24/17--1. Marked dilatation of the intrahepatic and extrahepatic biliary tree, common bile like measuring up to 2.1 cm in maximal dimension. The exact etiology of the biliary dilatation is indeterminate on the basis of this exam. There is a questionable nonobstructing in the dependent portion. 2. Indeterminate left adrenal mass identified. 3. Atherosclerosis. 4.The gallbladder is abnormal. There is wall thickening and cholelithiasis suspected. The possibility of cholecystitis should be entertained. Patient is s/p ERCP with sphincterectomy 05/24/17--EGD limited exam. Stomach normal. Prominent ampulla biopsy was done. Pancreatic duct normal. Common bile duct severe enlargement and dilation with multiple filling defects sphincterotomy was done and sweeping the duct revealed lots of pus and more than 10 stone with sludge. Otherwise normal. Patient denies abdominal pain today. No nausea or vomiting. Lipase 1806 on 05/24 and today it is normal, 248. T. Bilirubin trending down, 5.6 today from 8 yesterday. AST 48, ALT 104, ALK PHOS 275. PLAN: - GS consult for possible laparoscopic cholecystectomy - Monitor labs - Supportive care - Further recommendations to follow based on results of above Patient seen and examined by Dr. Garcia and myself and this note is written on his behalf. (Perlita Thomas) Plan Patient was seen and examined, agree with above note, she is doing well, liver function test trending down, she will need laparoscopic cholecystectomy as an inpatient or outpatient, surgery was consulted, we will follow-up labs and will see patient as an outpatient in the near future to ensure continued improvement of the lab and follow up on the biopsy results (Nicky Garcia MD) Perlita Thomas May 25, 2017 13:16 Nicky Garcia MD May 25, 2017 14:24
[2017-05-25 16:00] VITALS: BP 131/61; PULSE 70; RESP 17; TEMP 96.4; O2SAT 97
--- NOTE | 2017-05-25 16:15 | MB ---
cc: SAM GARCIA,DO SHANTEL HERNANDEZ,NANDO Peñaloza M.D. DATE OF CONSULTATION: 05/25/2017. REASON FOR CONSULTATION: Choledocholithiasis, cholelithiasis status post ERCP. CONSULTING PHYSICIAN: Dr. Garcia. HISTORY OF PRESENT ILLNESS: This is a pleasant 66-year-old female who has had some intermittent on and off problems with biliary colic type symptoms. She recently was admitted to the hospital after she was found to have an obstructed common duct. Dr. Garcia did an ERCP retracting twelve stones. She had symptoms of epigastric and right upper quadrant pain of 7/10 with nausea and vomiting. She had all her liver enzymes elevated and had amylase elevated as well. She underwent an ERCP with purulent material and sludge and a biopsy of her ampulla. A surgery consult was placed the day after ERCP. PAST MEDICAL HISTORY: Her past medical history is significant for: 1. Some oral surgery. 2. She has hypertension. 3. No other cardiac or respiratory problems. 4. She has had pneumonia in the past. 5. The known gallstones. 6. No neurologic or any genitourinary problems. PAST SURGICAL HISTORY: The only surgery she has had is a tubal ligation. SOCIAL HISTORY: She does smoke. REVIEW OF SYSTEMS No neurologic problems No pulmonary or cardiac issues She does have hypertension No neurologic or problems No endocrine or orthopedic issues MEDICATIONS: Her medications include: 1. Enalapril. 2. Hydrochlorothiazide. 3. Metoprolol. ALLERGIES: SHE IS NOT ALLERGIC TO ANYTHING. PHYSICAL EXAMINATION: GENERAL: On physical exam, she is sitting up in the bed. She is reading the Friday newspaper. She looks fairly comfortable. NECK: The neck is supple without carotid bruits. CHEST: Clear. ABDOMEN: Soft without rebound or guarding. Mild soreness in the right upper quadrant. EXTREMITIES: She moves all extremities without clubbing, cyanosis or edema. NEUROLOGIC: She is alert and oriented without focal deficits. LABORATORY DATA: She had a white count of 10 when she came in and it is now 7. Hemoglobin and hematocrit of 13 and 40. Chemistry shows a total bilirubin of 8. AST, ALT are elevated. Her bilirubin this morning is 5.6. Lipase was 1800 and now it is 248. Urinalysis showed some ketones. Coags were completely normal. IMAGING STUDIES: CT abdomen and pelvis showed marked dilatation of the biliary tree measuring up to 2.1 cm. She had numerous gallstones. ERCP was discussed with Dr. Garcia. He was able to retrieve the stones. ASSESSMENT: This is a 66-year-old female with choledocholithiasis recently having an ERCP retracting these stones. She did have a prominent ampulla as well. Dr. Garcia biopsied this and these are pending. Her symptomatology is almost completely resolved. She would like to go home and be treated as an outpatient, which we certainly can arrange. I have taken the liberty of advancing her diet and I have given her my card in anticipation of her being discharged today and she will call my office on Friday to set up an appointment to see me and set up elective cholecystectomy. This was discussed with the patient in detail and she appeared to understand. This was also discussed with Dr. Garcia who agreed. MD NERY Holden/ZHOU /3:30 PM /4:00 PM DIONNA
== END 2017-05-25 17:42 | disposition home or self-care (01) | DRG 439 ==
LOC: PHED 03:59 → PHEDA 06:34 → N07A 09:18
PROVIDERS: ADMIT Hospitalist; ATTEND Hospitalist
PROC: 0F798ZZ Dilation of Common Bile Duct, Via Natural or Artificial Opening Endoscopic (ICD-10-PCS; 2017-05-24)
PROC: 0FBC8ZX Excision of Ampulla of Vater, Via Natural or Artificial Opening Endoscopic, Diagnostic (ICD-10-PCS; 2017-05-24)
PROC: 0FC98ZZ Extirpation of Matter from Common Bile Duct, Via Natural or Artificial Opening Endoscopic (ICD-10-PCS; principal; 2017-05-24 15:00)
DX: K85.10 Biliary acute pancreatitis without necrosis or infection (principal); K80.71 Calculus of gallbladder and bile duct without cholecystitis with obstruction; J44.9 Chronic obstructive pulmonary disease, unspecified; I10 Essential (primary) hypertension; E78.5 Hyperlipidemia, unspecified; F17.210 Nicotine dependence, cigarettes, uncomplicated; Z23 Encounter for immunization
CPT/HCPCS: 74177; 74330; 80053; 81001; 83690; 85025; 85610; 85730; 88305; 90686; 93005; 96361; 96374; 96375; 96376; C1769; J0330; J1100; J1170; J2405; J2765; J3010; J7030; Q2038; Q9967

== ENCOUNTER → 2017-06-03 | Day surgery (SDC) | payer OTHER ==
[~2017-06-03] MED LIST changes: +ACETAMINOPHEN 1000 MG/100 ML 100 ML IV ONE; -AZIT500T2 PO; +BUPIVACAINE/EPINEPHRINE 0.5% PF 30 ML VIAL ONE; +KETOROLAC TROMETHAMINE 30 MG/ML (IVP) VIAL IV PUSH ONE; +LACTATED RINGER'S 1000 ML INJ 1,000 ML ONE; +MEPERIDINE HCL 25 MG/ML VIAL ONE; +MIDAZOLAM HCL 2 MG/2 ML VIAL ONE; +ONDANSETRON HCL 4 MG/2 ML VIAL IV PUSH ONE; -PRED10PA2 PO; +PROPOFOL 200 MG/20 ML AMP IV ONE; -TUSSSUS2 PO; -VENTAER INH; +ceFAZolin INJ 1,000 MG VIAL ONE; +metroNIDAZOLE 500 MG INJ 100 ML IV ONE
--- NOTE | 2017-06-03 12:17 | TN ---
cc: NANDO OWENS M.D. DATE OF SURGERY 06/02/2017 REOPERATIVE DIAGNOSIS Cholelithiasis, cholecystitis, history of choledocholithiasis, status post ERCP. POSTOPERATIVE DIAGNOSIS Cholelithiasis, cholecystitis, history of choledocholithiasis, status post ERCP. PROCEDURE Laparoscopic cholecystectomy ANESTHESIA General. SURGEON Dr. Owens. INDICATION This is a 67-year-old female who had a bout of choledocholithiasis, had an ERCP and now set for cholecystectomy. DETAILS OF PROCEDURE The patient was taken to the operating room and placed in the supine position. After endotracheal anesthesia her abdomen is prepped with Betadine solution. We make incision an incision just at the umbilicus. A Veress needle is inserted and a saline load test is performed. The abdomen is insufflated to 15 mmHg. Two other working ports are placed, 5 mm below the xiphoid, 5 mm in between the two previously placed ports. The gallbladder can be seen. It is obviously inflamed chronically. There is large stone within the gallbladder. We are able to grasp the gallbladder superior and laterally. Dissect down to where the cystic duct is visualized but it is very short and contracted. The common duct is identified and somewhat riding high. We do a dome-down technique to free the gallbladder from the liver and we dissect it all the way circumferentially around where we can see the short stubby cystic duct segment. The cystic artery is very small and it is ligated with a hemoclip. The cystic duct is somewhat short and wide and for this reason two end ties of PDS are placed around the cystic duct, ensuring that we did not narrow the common duct which can be seen and slightly dilated. With this accomplished we are able to place a hemoclip at the proximal end of the gallbladder and then transect it and pull it out through the umbilical incision in an EndoCatch. We then check our dissection site. There is excellent hemostasis without biliary leakage. We irrigate. A small amount of blood is evacuated. The irrigating solution is evacuated. The CO2 is evacuated. The trocars are removed. We then close the umbilical incision with 0 Vicryl at the fascial layer and skin with 4-0 Vicryl. Steri-Strips are applied. Sterile bandage applied. The patient tolerated the procedure well and had no immediate post-op complications. MD NERY Holden/KERVIN /12:02 PM /12:07 PM
== END | disposition home or self-care (01) ==
LOC: ESDC 07:57
PROVIDERS: ATTEND Surgery
DX: K80.66 Calculus of gallbladder and bile duct with acute and chronic cholecystitis without obstruction (principal)
CPT/HCPCS: 00790; 47562; 88304; J0131; J0690; J1885; J2175; J2250; J2405; J3010; J7120